=== PATIENT | male | born 1990 | race Caucasian/White ===

== ENCOUNTER → 2019-10-20 08:44 | Outpatient (CLI) | payer MEDICAID | END | disposition home or self-care (01) | LOC: D.RT 08:30 | PROVIDERS: ATTEND Family Medicine | DX: R06.00 Dyspnea, unspecified (principal) ==

== ENCOUNTER 2021-02-18 19:25 | Emergency (ER) | payer BC ==
[~2021-02-18] VITALS: Ht 162.6 cm; Wt 63.6 kg
[2021-02-18 19:58] VITALS: Ht 162.6 cm; Wt 63.6 kg
[2021-02-18] MEDS ORDERED: KLONOPIN1 MG PO (19:59)
[2021-02-18] MEDS ORDERED: HYDROCODONE-AC1 EAC2 PO (19:59)
[2021-02-18 20:30] VITALS: BP 122/74
== END 2021-02-18 22:30 | disposition home or self-care (01) ==
LOC: D.ER 19:25
DX: R10.9 Unspecified abdominal pain (principal); M54.5 Low back pain